=== PATIENT | male | born 1970 ===

== ENCOUNTER 2018-12-01 07:31 | Outpatient (CLI) | payer OTHER ==
[~2018-12-01] VITALS: Ht 152.4 cm; Wt 77.1 kg
== END 2018-12-01 12:24 | disposition home or self-care (01) ==
LOC: OFIC 805 07:31
DX: G47.33 Obstructive sleep apnea (adult) (pediatric) (principal); H92.01 Otalgia, right ear; J31.0 Chronic rhinitis